=== PATIENT | female | born 1970 | race African-American/Black ===

== ENCOUNTER 2017-09-19 09:48 | Inpatient (IN) | payer OTHER ==
[2017-10-18] MEDS ORDERED: WITCH HAZEL 50% (TUCKS) 40 PAD/JAR PAD TP PRN (08:35)
[2017-10-18] MEDS ORDERED: METHYLERGONOVINE MALEATE 0.2 MG/1 ML AMP IM PRN (08:35)
[2017-10-18] MEDS ORDERED: ACETAMINOPHEN 325 MG TABLET (FP) PO PRN (08:35)
[2017-10-18] MEDS ORDERED: BENZOCAINE 20% 57 GM BOTTLE TP PRN (08:35)
[2017-10-18] MEDS ORDERED: oxyCODONE HCL 5 MG TABLET PO PRN (08:35)
[2017-10-18] MEDS ORDERED: BENZOCAINE 28 GM HEMORRHOIDAL OINTMENT TP PRN (08:35)
[2017-10-18] MEDS ORDERED: IBUPROFEN 600 MG TABLET (FP) PO PRN ×2 (08:35→12:28)
[2017-10-18] MEDS ORDERED: BISACODYL 10 MG SUPP.RECT RC PRN (08:35)
[2017-10-18] MEDS ORDERED: D5W-LR W/ 20 UNITS OXYTOCIN 1,000 ML IV SCH (08:45)
[2017-10-18] MEDS ORDERED: ROPIVACAINE HCL 0.5% 30ML VIAL ONE (09:53)
[2017-10-18] MEDS ORDERED: MIDAZOLAM HCL 2 MG/2 ML SINGLE DOSE VIAL ONE ×2 (09:54)
[2017-10-18] MEDS ORDERED: PRENATAL VITAMINS W/ FOLIC ACID TABLET (FP) PO SCH (10:00)
[2017-10-18] MEDS ORDERED: FERROUS SO4 325 MG TABLET (FP) PO SCH (10:00)
[2017-10-18] MEDS ORDERED: ONDANSETRON 4 MG/2 ML VIAL IVPUSH PRN ×2 (11:01→12:28)
[2017-10-18] MEDS ORDERED: LACTATED RINGERS SOLUTION 1,000 ML IV SCH ×2 (11:15→22:00)
[2017-10-18 11:31] VITALS: BMI 21.9
--- NOTE | 2017-10-18 11:39 | HP ---
Past Medical History - Primary Care Physician PCP:: Dewey Mack - Admission Chief Complaint: pelvic pain, menometrorrhagia, anemia, fibroid uterus History of Present Illness: 47 yo f with hx of long time heavy . irregular vaginal bleeding , with pelvic pain ,and severe anemia reciving iron transfusion ,with large fibroid uterus admitted for supracervical abdominal hysterectomy , rba discussed History Source: Patient Limitations to Obtaining History: No Limitations - Past Medical History Heme/Onc: Yes: Anemia Psych: Yes: Anxiety - Past Surgical History Hx Myomectomy: No Hx Transabdominal Cerclage: No - Smoking History Smoking history: Current every day smoker Aproximately how many cigarettes per day: 4 - Alcohol/Substance Use Hx Alcohol Use: Yes (SOC) - Social History History of Recent Travel: No Home Medications - Allergies Allergies/Adverse Reactions: Allergies Allergy/AdvReac Type Severity Reaction Status Date / Time No Known Drug Allergies Allergy Verified 10/18/17 11:17 - Home Medications Home Medications: Ambulatory Orders Ferrous Fumarate 200 mg PO HS 09/15/17 Advil - 400 mg PO PRN 10/18/17 Review of Systems - Review of Systems Constitutional: reports: Weakness Eyes: reports: No Symptoms HENT: reports: No Symptoms Neck: reports: No Symptoms Cardiovascular: reports: No Symptoms Respiratory: reports: No Symptoms Gastrointestinal: reports: Abdominal Pain, Bloating Genitourinary: reports: Urgency, Vaginal Bleeding Breasts: reports: No Symptoms Reported Musculoskeletal: reports: No Symptoms Integumentary: reports: No Symptoms Neurological: reports: No Symptoms Endocrine: reports: No Symptoms Hematology/Lymphatic: reports: No Symptoms Psychiatric: reports: No Symptoms 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: Vital Signs Temperature 98.1 F 10/18/17 11:32 Pulse Rate 94 H 10/18/17 11:32 Respiratory Rate 16 10/18/17 11:32 Blood Pressure 143/93 10/18/17 11:32 O2 Sat by Pulse Oximetry (%) 100 10/18/17 11:31 Constitutional: Yes: Well Nourished, No Distress, Calm Eyes: Yes: WNL, Conjunctiva Clear, EOM Intact HENT: Yes: WNL, Atraumatic, Normocephalic Neck: Yes: WNL, Supple, Trachea Midline Cardiovascular: Yes: WNL, Regular Rate and Rhythm Respiratory: Yes: WNL, Regular, CTA Bilaterally Gastrointestinal: Yes: WNL ...Rectal Exam: Yes: WNL Renal/: Yes: WNL Pelvis: Yes: WNL External Genitalia: Yes: Normal Internal Exam Deferred: No Vaginal Exam: Yes: Normal Cervix: Yes: Normal Uterus: Yes: Enlarged, Lumpy (18 to 20 weeks size, tender) Adnexa: Not Palpable: Left, Right Breast(s): Yes: WNL Musculoskeletal: Yes: WNL Extremities: Yes: WNL Edema: No Integumentary: Yes: WNL Neurological: Yes: WNL, Alert, Oriented ...Motor Strength: WNL Psychiatric: Yes: WNL, Alert, Oriented Problem List - Problem (1) Menometrorrhagia Code(s): N92.1 - EXCESSIVE AND FREQUENT MENSTRUATION WITH IRREGULAR CYCLE (2) Pelvic pain Code(s): R10.2 - PELVIC AND PERINEAL PAIN (3) Leiomyoma of body of uterus Code(s): D25.9 - LEIOMYOMA OF UTERUS, UNSPECIFIED Qualifiers: Uterine leiomyoma location: intramural Qualified Code(s): D25.1 - Intramural leiomyoma of uterus (4) Anemia Code(s): D64.9 - ANEMIA, UNSPECIFIED Qualifiers: Anemia type: iron deficiency Iron deficiency anemia type: chronic blood loss Qualified Code(s): D50.0 - Iron deficiency anemia secondary to blood loss (chronic) Assessment/Plan admit for supracervical abdominal hysterectomy
[2017-10-18] MEDS ORDERED: DEXAMETHASONE SOD PHOSPHATE/PF 10 MG/ML SDV ONE (12:07)
[2017-10-18] MEDS ORDERED: PROPOFOL 20 ML ONE ×2 (12:23)
[2017-10-18] MEDS ORDERED: ROCURONIUM BROMIDE 50 MG/5 ML VIAL ONE ×2 (12:23→12:51)
[2017-10-18] MEDS ORDERED: IBUPROFEN 800 MG/8 ML IJ IVPB PRN (12:28)
[2017-10-18] MEDS ORDERED: ELECTROLYTE-148 SOLN 1,000 ML IV SCH (12:30)
[2017-10-18] MEDS ORDERED: ceFAZolin SODIUM 1 GM VIAL ONE ×2 (12:43→12:52)
[2017-10-18] MEDS: ceFAZolin SODIUM 1 GM VIAL IVPB ONE (12:44)
[2017-10-18] MEDS ORDERED: DEXAMETHASONE SOD PHOSPHATE 4 MG/1 ML VIAL ONE (12:52)
[2017-10-18] MEDS ORDERED: KETOROLAC TROMETHAMINE 30 MG/1 ML VIAL ONE (13:35)
[2017-10-18] MEDS ORDERED: NEOSTIGMINE METHYLSULFATE 0.5 MG/ML - 10 ML MDV ONE (13:42)
[2017-10-18] MEDS ORDERED: GLYCOPYRROLATE 0.2 MG/1 ML VIAL ONE (13:43)
[2017-10-18] MEDS ORDERED: HYDROmorphone HCL CARPU-JECT 2 MG/1 ML DISP.SYRIN IVPUSH ONE ×2 (14:00→14:10)
[2017-10-18] MEDS ORDERED: HYDROmorphone *PCA* 10MG/50ML DISP.SYRIN PCA ONE ×2 (14:04→14:25)
[2017-10-18] MEDS ORDERED: HYDROmorphone HCL CARPU-JECT 2 MG/1 ML DISP.SYRIN ONE (14:04)
[2017-10-18] MEDS ORDERED: LABETALOL HCL 5 MG/1 ML (100MG/20 ML VIAL) IVPUSH ONE ×2 (15:56→16:06)
[2017-10-18] MEDS ORDERED: LABETALOL HCL 200 MG TABLET (FP) PO PRN (17:47)
[2017-10-18] MEDS ORDERED: LABETALOL HCL 200 MG TABLET (FP) PO ONE (18:00)
[2017-10-18] MEDS: CEFAZOLIN 1 GM PUSH 1 GM/10 ML DISP.SYRIN IVPUSH SCH (21:00)
[2017-10-19] MEDS: FERROUS SO4 325 MG TABLET (FP) PO SCH ×2 (03:02→21:16)
[2017-10-19] MEDS: CEFAZOLIN 1 GM PUSH 1 GM/10 ML DISP.SYRIN IVPUSH SCH ×2 (04:00→12:37)
[2017-10-19] MEDS: ceFAZolin SODIUM 1 GM VIAL IVPB ONE (04:00)
--- NOTE | 2017-10-19 08:47 | PN ---
Progress Note (short form) - Note Progress Note: pod 1 doing well, tolerating clear liquid, has incisional pain Last Vital Signs Temp Pulse Resp BP Pulse Ox 98.1 F 75 20 121/71 100 10/19/17 07:00 10/19/17 07:00 10/19/17 07:00 10/19/17 07:00 10/18/17 16:35 abdomen soft, no distension, no cva incision dry, clean no vaginal bleeding, no calf pain plan ambulate, advance diet, cbc, BMP revaluate Problem List - Problems (1) Menometrorrhagia Code(s): N92.1 - EXCESSIVE AND FREQUENT MENSTRUATION WITH IRREGULAR CYCLE (2) Pelvic pain Code(s): R10.2 - PELVIC AND PERINEAL PAIN (3) Leiomyoma of body of uterus Code(s): D25.9 - LEIOMYOMA OF UTERUS, UNSPECIFIED Qualifiers: Uterine leiomyoma location: intramural Qualified Code(s): D25.1 - Intramural leiomyoma of uterus (4) Anemia Code(s): D64.9 - ANEMIA, UNSPECIFIED Qualifiers: Anemia type: iron deficiency Iron deficiency anemia type: chronic blood loss Qualified Code(s): D50.0 - Iron deficiency anemia secondary to blood loss (chronic)
[2017-10-19 09:04] LABS: BASO % 0.1 % (0-2.0); MCH 31.9 pg (25.7-33.7); MCHC 32.3 g/dl (32.0-36.0); MEAN CELL VOLUME 98.7 fl (80-96); MEAN PLT VOLUME 9.5 fl (7.5-11.1); PLATELET COUNT 178 K/MM3 (134-434); RDW 18.4 % (11.6-15.6); WHITE BLOOD COUNT 15.5 K/mm3 (4.0-10.0)
[2017-10-19] MEDS: ENOXAPARIN NA (PORCINE) 40 MG/0.4 ML DISP.SYRIN SQ SCH (09:17)
[2017-10-19] MEDS ORDERED: PCA PUMP KEY 1 EACH EACH ONE (09:21)
[2017-10-19 09:34] LABS: ANION GAP 8 (8-16); CALCIUM 7.6 mg/dL (8.5-10.1); CO2 24 mmol/L (21-32); CREATININE 0.7 mg/dL (0.55-1.02); GLUCOSE,RANDOM 110 mg/dL (74-106); SGOT/AST 15 U/L (15-37); SGPT/ALT 20 U/L (12-78)
[2017-10-19 09:36] LABS: ALK PHOS 48 U/L (45-117); BILIRUBIN,TOTAL 0.4 mg/dL (0.2-1.0); TOT PROT 5.5 g/dl (6.4-8.2)
--- NOTE | 2017-10-19 11:03 | CON.NEP ---
Consult Consult Specialty:: Nephrology Referred by:: Reason for Consultation:: Hypertension - History of Present Illness Chief Complaint: s/p Hysterectomy History of Present Illness: This is a 47 year old woman with PMhx of white coat hypertension, Fibroids, PTSD , Anxiety who presented for elective abd hysterectomy with elevated BP s/p surgery. Pt reports that in the past her BP was elevated when getting physicals for work but with home monitoring it was normal. She has not required medication for hypertension. No ESCOBEDO, CP, blurry vision, N/V. + Pain at surgical site 03/16. No SOB, fever, chills. S/p IV and PO labetalol last night. - History Source History Provided By: Patient Limitations to Obtaining History: No Limitations - Past Medical History ...LMP Comment: 08/26/17 Psych: Yes: Anxiety - Alcohol/Substance Use Hx Alcohol Use: Yes (SOC) - Smoking History Smoking history: Current every day smoker Aproximately how many cigarettes per day: 4 - Social History History of Recent Travel: No Home Medications - Allergies Allergies/Adverse Reactions: Allergies Allergy/AdvReac Type Severity Reaction Status Date / Time No Known Drug Allergies Allergy Verified 10/18/17 11:17 - Home Medications Home Medications: Ambulatory Orders Ferrous Fumarate 200 mg PO HS 09/15/17 Advil - 400 mg PO PRN 10/18/17 Family Disease History - Family Disease History Family Disease History: Other: Father (hypertension ) Review of Systems - Review of Systems Constitutional: reports: No Symptoms Eyes: reports: No Symptoms HENT: reports: No Symptoms Neck: reports: No Symptoms Cardiovascular: reports: No Symptoms Respiratory: reports: No Symptoms Gastrointestinal: reports: Abdominal Pain Genitourinary: reports: No Symptoms Musculoskeletal: reports: No Symptoms Neurological: reports: No Symptoms Endocrine: reports: No Symptoms Psychiatric: reports: Anxiety Nephrology Consult - Height Height: 5 ft 4 in - Weight Weight: 58.06 kg - BMI Body Mass Index (BMI): 21.9 - Lab Results CBC,BMP: CBC, BMP 10/19/17 08:00 10/19/17 08:00 Anion Gap: Anion Gap Anion Gap 8 (8-16) 10/19/17 08:00 - Physical Examination Vital Signs: Vital Signs Temperature 97.9 F 10/19/17 08:50 Pulse Rate 74 10/19/17 08:50 Respiratory Rate 20 10/19/17 08:50 Blood Pressure 134/82 10/19/17 08:50 O2 Sat by Pulse Oximetry (%) 100 10/18/17 16:35 Constitutional: Yes: Well Nourished, No Distress, Calm HENT: Yes: Atraumatic, Normocephalic Neck: Yes: Supple Cardiovascular: Yes: Regular Rate and Rhythm. No: Murmur, Rub Extremities: No: Cold, Cool, Cyanosis Edema: No Assessment/Plan 47 year old woman with PMhx of white coat hypertension, Fibroids, PTSD, Anxiety who presented for elective abd hysterectomy with elevated BP s/p surgery. #Hypertension s/p surgical procedure/Hx of white coat hypetension elevated BP likely due to pain, anxiety, [facility] Would monitor BP closely during inpatient stay Given Labetalol PRN for BP > 150/100 Pain control avoid nsaids low salt diet pt likely will not require anti-hypertensive meds on discharge will benefit from ambulatory BP monitoring as outpatient. Thank you will follow Raz Tabares DO
[2017-10-19] MEDS: oxyCODONE HCL 5 MG TABLET PO PRN ×2 (11:19→19:42)
[2017-10-19] MEDS: ACETAMINOPHEN 325 MG TABLET (FP) PO PRN ×2 (11:20→19:41)
[2017-10-19 13:32] LABS: URINE APPEARANCE SLCLOUDY; URINE BILIRUBIN NEGATIVE (NEGATIVE); URINE BLOOD 3+ (NEGATIVE); URINE COLOR LTYELLOW; URINE GLUCOSE (UA) NEGATIVE (NEGATIVE); URINE KETONE NEGATIVE (NEGATIVE); URINE LEUK ESTERASE NEGATIVE (NEGATIVE); URINE NITRITE NEGATIVE (NEGATIVE); URINE PROTEIN NEGATIVE (NEGATIVE); URINE UROBILINOGEN NEGATIVE mg/dL (0.2-1.0)
[2017-10-19 13:37] LABS: URINE BACTERIA RARE /hpf (NONE SEEN); URINE MUCUS RARE; URINE RBC 14 /hpf (0-3); URINE WBC 5 /hpf (3-5)
[2017-10-19 17:08] LABS: URINE LEUK ESTERASE Negative (NEGATIVE)
[2017-10-19] MEDS ORDERED: BISACODYL 5 MG TABLET.DR (FP) PO ONE ×2 (17:15)
[2017-10-19] MEDS ORDERED: LABETALOL HCL 200 MG TABLET (FP) PO PRN (17:22)
[2017-10-19] MEDS: HYDROmorphone *PCA* 10MG/50ML DISP.SYRIN PCA SCH ×2 (20:45→20:46)
[2017-10-19] MEDS ORDERED: SENNOSIDES/DOCUSATE COMBO (SENNA PLUS) TABLET (UD) PO PRN (22:00)
[2017-10-20] MEDS: oxyCODONE HCL 5 MG TABLET PO PRN ×3 (02:43→12:14)
[2017-10-20] MEDS: ACETAMINOPHEN 325 MG TABLET (FP) PO PRN ×4 (02:43→17:26)
--- NOTE | 2017-10-20 06:49 | PN ---
Progress Note, Physician Chief Complaint: s/p partial abdominal hysterectomy under general anesthesia History of Present Illness: post op day 1, patient received TAPs blocks for post op pain relieve as well as a dilaudid [employer] - Current Medication List Current Medications: Active Medications Acetaminophen (Tylenol -) 650 mg PO Q6H PRN PRN Reason: FEVER OR PAIN Last Admin: 10/20/17 02:43 Dose: 650 mg Enoxaparin Sodium (Lovenox -) 40 mg SQ DAILY [facility] Last Admin: 10/19/17 09:17 Dose: 40 mg Ferrous Sulfate (Feosol -) 325 mg PO HS [facility] Last Admin: 10/19/17 21:16 Dose: 325 mg Labetalol HCl (Normodyne -) 200 mg PO Q6H PRN PRN Reason: HYPERTENSION Last Admin: 10/19/17 17:32 Dose: 200 mg Ondansetron HCl (Zofran Injection) 4 mg IVPUSH Q6H PRN PRN Reason: NAUSEA Oxycodone HCl (Roxicodone -) 10 mg PO Q4H PRN PRN Reason: PAIN LEVEL 1-5 Last Admin: 10/20/17 02:43 Dose: 10 mg - Objective Vital Signs: Vital Signs Temperature 98.6 F 10/19/17 22:00 Pulse Rate 75 10/20/17 06:00 Respiratory Rate 18 10/19/17 22:00 Blood Pressure 138/76 10/20/17 06:00 O2 Sat by Pulse Oximetry (%) 100 10/18/17 16:35 Constitutional: Yes: Well Nourished Cardiovascular: Yes: WNL Respiratory: Yes: WNL Gastrointestinal: Yes: WNL Labs: CBC, BMP 10/19/17 08:00 10/19/17 08:00 Assessment/Plan Pain adequately controlled, no nausea or vomiting, no adverse effect of anesthetic. Dept of anesthesia will sign off care at this time.
--- NOTE | 2017-10-20 08:35 | OP ---
DATE OF OPERATION: 10/18/2017 PREOPERATIVE DIAGNOSES: Pelvic pain, menometrorrhagia, anemia, fibroid uterus. POSTOPERATIVE DIAGNOSES: Pelvic pain, menometrorrhagia, anemia, fibroid uterus. PROCEDURE: Supracervical hysterectomy and right salpingo-oophorectomy and left salpingectomy. SURGEON: Dewey Mack MD METAL RIVETER: Mic Tripathi MD ANESTHESIA: General. ESTIMATED BLOOD LOSS: 100 mL DESCRIPTION OF OPERATION: Patient was taken to the operating room. Under adequate general anesthesia, a Pfannenstiel abdominal skin incision was made. The abdominal wall was cut layer by layer until the peritoneum was exposed and incised. Upon entering the abdominal cavity, there was a large uterus with multiple fibroids extending to the umbilical area, was noted. Upper abdomen was checked, was normal. Then, bowels were packed away, and the fibroid was delivered. Both round ligaments were grasped with the bipolar cautery and cauterized and cut, and then, bladder flap was developed and bladder was pushed down. Then, the right ovary had a hemorrhagic cyst which infundibulopelvic ligament was identified on the right side, grasped with the bipolar cautery, cauterized, and cut. Then, on the left side, the left ovarian ligament was grasped with the bipolar LigaSure cautery, cauterized, and cut. Then, the left tube was removed along the mesosalpinx with the LigaSure cautery, and then, bladder was further pushed down. Uterine artery was identified bilaterally. Uterine artery was grasped with a Salvador clamp, cut, and the clamp replaced with 0 Vicryl suture bilaterally. At this time, paracervical area was grasped with a Salvador clamp and cut, and the clamp replaced with 0 Vicryl suture bilaterally. Then, the specimen was removed above the cervix. Then, the cervix was grasped with 2 Miguel Ángel clamps and then sutured with interrupted suture of 0 Vicryl. Then, the pelvic cavity several times irrigated. No active bleeding was seen. Reperitonealization of the pelvic floor was done with continuous suture of 2-0 Vicryl, and then, all the lap pads, sponge, and instrument counts were correct. Appendix appeared to be normal. Then, the peritoneum was closed with 0 Vicryl continuous suture. Muscles were brought together with interrupted suture of 0 Vicryl. Fascia was closed with 0 Vicryl continuous suture, subcutaneous fat with interrupted suture of 0 Vicryl, and the skin was closed with 3-0 Vicryl continuous subcuticular suture. Patient tolerated the procedure well, left the OR in good condition. Nilda [id number]
[2017-10-20] MEDS: ENOXAPARIN NA (PORCINE) 40 MG/0.4 ML DISP.SYRIN SQ SCH (09:03)
[2017-10-20 11:04] VITALS: TEMP 98.2
--- NOTE | 2017-10-20 11:56 | PN ---
Progress Note (short form) - Note Progress Note: Renal follow up for hypertension pt seen and examined at the bedside awake and alert reports + constipation no N/V passing gas Vital Signs Temperature 98.2 F 10/20/17 10:00 Pulse Rate 78 10/20/17 10:00 Respiratory Rate 18 10/20/17 10:00 Blood Pressure 133/93 10/20/17 10:00 O2 Sat by Pulse Oximetry (%) 100 10/18/17 16:35 Intake & Output 10/17/17 10/18/17 10/19/17 10/20/17 23:59 23:59 23:59 23:59 Intake Total 2090 700 Output Total 975 1400 Balance 1115 -700 Weight 58.06 kg NAD awake and alert RRR, no M/R CTA soft NT/ND No LE edema CBC, BMP 10/19/17 08:00 10/19/17 08:00 Current Medications Acetaminophen (Tylenol -) 650 mg PO Q6H PRN PRN Reason: FEVER OR PAIN Last Admin: 10/20/17 07:47 Dose: 650 mg Enoxaparin Sodium (Lovenox -) 40 mg SQ DAILY [facility] Last Admin: 10/20/17 09:03 Dose: 40 mg Ferrous Sulfate (Feosol -) 325 mg PO HS [facility] Last Admin: 10/19/17 21:16 Dose: 325 mg Labetalol HCl (Normodyne -) 200 mg PO Q6H PRN PRN Reason: HYPERTENSION Last Admin: 10/19/17 17:32 Dose: 200 mg Ondansetron HCl (Zofran Injection) 4 mg IVPUSH Q6H PRN PRN Reason: NAUSEA Oxycodone HCl (Roxicodone -) 10 mg PO Q4H PRN PRN Reason: PAIN LEVEL 1-5 Last Admin: 10/20/17 07:47 Dose: 10 mg 47 year old woman with PMhx of white coat hypertension, Fibroids, PTSD, Anxiety who presented for elective abd hysterectomy with elevated BP s/p surgery. #Hypertension s/p surgical procedure/Hx of white coat hypetension BP falls into the pre-htn and stage 1 hypertension category at this time would no recommend anti-hypertensive therapy would benefit from low salt diet and life style modifications will need 24 hour ambulatory BP monitoring as a outpatient stable for discharge from renal perspective Raz Tabares DO
--- NOTE | 2017-10-20 17:56 | DS ---
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: Vital Signs Temperature 98.2 F 10/20/17 10:00 Pulse Rate 81 10/20/17 14:00 Respiratory Rate 18 10/20/17 14:00 Blood Pressure 121/94 10/20/17 14:00 O2 Sat by Pulse Oximetry (%) 100 10/18/17 16:35 Constitutional: Yes: Well Nourished, No Distress, Calm Eyes: Yes: WNL, Conjunctiva Clear, EOM Intact HENT: Yes: WNL, Atraumatic, Normocephalic Neck: Yes: WNL, Supple, Trachea Midline Cardiovascular: Yes: WNL, Regular Rate and Rhythm Respiratory: Yes: WNL, Regular, CTA Bilaterally Gastrointestinal: Yes: WNL ...Rectal Exam: Yes: WNL Renal/: Yes: WNL Breast(s): Yes: WNL Musculoskeletal: Yes: WNL Extremities: Yes: WNL Integumentary: Yes: WNL Wound/Incision: Yes: Clean/Dry, Well Approximated, Sutures Intact Neurological: Yes: WNL, Alert, Oriented ...Motor Strength: WNL Psychiatric: Yes: WNL, Alert, Oriented Labs: CBC, BMP 10/19/17 08:00 10/19/17 08:00 Discharge Summary Reason For Visit: FIBROIDS UTERUS, ANEMIA Current Active Problems Anemia (Acute) Leiomyoma of body of uterus (Acute) Menometrorrhagia (Acute) Pelvic pain (Acute) Procedures: Principal: supracervical abdominal hysterectomy, RT salpingooophorectomy, LT salpingectomy Condition: Good - Instructions Diet, Activity, Other Instructions: regular diet, no intercourse, follow up office 2 weeks, if fever, pain call MD Referrals: Dewey Mack MD [Staff Physician] - Disposition: HOME - Home Medications Comprehensive Discharge Medication List: Ambulatory Orders Ferrous Fumarate 200 mg PO HS 09/15/17 Advil - 400 mg PO PRN 10/18/17 Ibuprofen [Motrin -] 600 mg PO QID #28 tablet 10/20/17
[2017-10-20 18:07] VITALS: BP 135/90; PULSE 76
--- NOTE | 2017-10-26 17:48 | PATH ---
Surgical Pathology Report Patient Name: HEATHER IVEY [facility]. Rec. 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 Specimen(s) Received A: RIGHT FALLOPIAN TUBE B: LEFT FALLOPIAN TUBE AND UTERUS, RIGHT OVARY AND CYST Clinical History Fibroid uterus, anemia Final Diagnosis A. FALLOPIAN TUBE, RIGHT, SALPINGECTOMY: FALLOPIAN TUBE WITH MILD VASCULAR CONGESTION. B. PORTION OF CERVIX, UTERUS, LEFT FALLOPIAN TUBE AND RIGHT OVARIAN CYST: LATE PROLIFERATIVE TO EARLY SECRETORY ENDOMETRIUM. SUBMUCOSAL AND INTRAMURAL LEIOMYOMATA. MYOMETRIUM WITH ADENOMYOSIS. PORTION OF CERVIX WITH BENIGN MESONEPHRIC RESTS, FOCAL ACUTE INFLAMMATION AND SQUAMOUS METAPLASIA. SEE COMMENT. LEFT FALLOPIAN TUBE WITHOUT SIGNIFICANT PATHOLOGIC FINDINGS. RIGHT OVARY WITH FOLLICULAR CYST AND HEMORRHAGIC CORPUS LUTEUM CYST. Comment: Immunohistochemical stains performed at [place], [place] ([id number]) and interpreted at [facility] show the benign mesonephric rests are positive for BCL2 while negative for CD10. P16 shows rare focal staining, while proliferative marker ki-67 is low, supporting the above diagnosis. Electronically Signed Lynnette Herrera M.D. Gross Description A. Received in formalin are labeled "right fallopian tube," is a 4.5 cm in length fimbriated fallopian tube. The outer surface is pace purple and smooth. Sectioning reveals an unremarkable lumen. Paper Sealer sections are submitted in 2 cassettes as follows: 1-fimbria; 2-cross sections of fallopian tube. B. Received in formalin labeled "left fallopian tube, uterus and right ovary cyst," is an 846 g supracervically amputated uterus with an attached left fallopian tube. The specimen measures 13 cm from superior to inferior, 10.5 cm from left to right and 10.5 cm from anterior to posterior. The serosa is [place]son[place] with focal subserosal nodules. The endometrial cavity measures 8 cm in length and 3 cm from cornu to cornu. The endometrium is olson and averages 0.1 cm in thickness. The myometrium displays abundant intramural nodules measuring up to 3 cm in greatest dimension. The cut surface of intramural and subserosal nodules is olson, firm to rubbery with whorled architecture. No areas of hemorrhage or necrosis are identified. The myometrium is olson-pink and trabeculated, consistent with adenomyosis. The myometrium measures up to 7.2 cm in thickness. The attached left fimbriated fallopian tube measures 5 cm in length. The outer surface is pace purple and smooth. Sectioning reveals an unremarkable lumen. Separately received within the same container is a 4.8 x 4.5 x 1.7 cm ovary. The outer surface is [place] and smooth. Sectioning reveals a 3.0 cm in greatest dimension hemorrhagic cyst. There is an additional 0.6 cm in greatest dimension serous cyst present. The remaining ovarian parenchyma is unremarkable. Paper Sealer sections are submitted in 15 cassettes as follows: 1-cervical stump margin of resection; 9-0-wcbfkbvm endomyometrium; 4-7-jftndaodp endomyometrium; 6-subserosal nodules; 6-0-nlixaunjwf nodules; 10-left fallopian tube fimbria; 11-cross sections of left fallopian tube; 12-13-ovary with hemorrhagic cyst; 4-additional ovary with hemorrhagic cyst and serous cyst; 15-uninvolved ovarian parenchyma. 10/20/201710/20/2017
== END 2017-10-20 18:14 | disposition home or self-care (01) | DRG 743 ==
LOC: EDSTATUS 09:48 → JSAMEDAYSX 10-18 05:50 → J3W 10-18 16:37
PROVIDERS: ADMIT Obstetrics & Gynecology; ATTEND Obstetrics & Gynecology
PROC: 0UT00ZZ Resection of Right Ovary, Open Approach (ICD-10-PCS; 2017-10-18)
PROC: 0UT70ZZ Resection of Bilateral Fallopian Tubes, Open Approach (ICD-10-PCS; 2017-10-18)
PROC: 0UT90ZL Resection of Uterus, Supracervical, Open Approach (ICD-10-PCS; principal; 2017-10-18 11:00)
DX: N92.1 Excessive and frequent menstruation with irregular cycle (principal); R10.2 Pelvic and perineal pain; F41.8 Other specified anxiety disorders; F17.200 Nicotine dependence, unspecified, uncomplicated; D25.1 Intramural leiomyoma of uterus; D50.0 Iron deficiency anemia secondary to blood loss (chronic); F43.10 Post-traumatic stress disorder, unspecified
CPT/HCPCS: 36415; 80048; 80053; 81003; 81015; 82570; 84156; 84703; 85025; 88302-TC; 88307-TC; 94010; 94760